=== PATIENT | male | born 1985 | race Caucasian/White ===

== ENCOUNTER 2018-05-03 07:17 | Emergency (ER) | payer OTHER ==
[~2018-05-03] VITALS: Ht 177.8 cm; Wt 81.6 kg
[2018-05-03] MEDS ORDERED: TETANUS-DIPTH-ACEL PERTUSSIS 0.5ML SYRG IM ONE (07:45)
[2018-05-03 07:49] VITALS: BP 105/68
== END 2018-05-03 07:51 | disposition home or self-care (01) ==
LOC: ER 07:17 → EDBD 07:17 → ER 07:51
DX: S40.812A Abrasion of left upper arm, initial encounter (principal); R10.31 Right lower quadrant pain; V43.92XA Unspecified car occupant injured in collision with other type car in traffic accident, initial encounter; Y93.89 Activity, other specified; Y99.8 Other external cause status; Y92.89 Other specified places as the place of occurrence of the external cause
CPT/HCPCS: 90471; 90715